=== PATIENT | female | born 1990 | race Caucasian/White ===

== ENCOUNTER → 2017-02-27 | Outpatient (REF) | payer BC ==
[2017-02-27 13:06] LABS: HEMATOCRIT 40.4 % (36.0-47.0); HEMOGLOBIN 13.5 g/dl (12.0-16.0); MEAN CORPUSCULAR HEMOGLOBIN 30.2 pg (27.0-33.0); MEAN CORPUSCULAR HGB CONC 33.4 g/dl (32.0-36.5); MEAN CORPUSCULAR VOLUME 90.4 fl (80.0-96.0); PLATELET COUNT, AUTOMATED 285 10^3/uL (150-450); RED BLOOD COUNT 4.47 10^6/uL (4.00-5.40); RED CELL DISTRIBUTION WIDTH 11.7 % (11.5-14.5); WHITE BLOOD COUNT 6.5 10^3/uL (4.0-10.0)
[2017-02-27 13:50] LABS: ALBUMIN 4.1 GM/DL (3.2-5.2); ALBUMIN/GLOBULIN RATIO 1.17 (1.00-1.93); ALKALINE PHOSPHATASE 94 U/L (45-117); ALT/SGPT 23 U/L (12-78); ANION GAP 6 MEQ/L (8-16); AST/SGOT 17 U/L (7-37); BILIRUBIN,TOTAL 0.3 MG/DL (0.2-1.0); BLOOD UREA NITROGEN 14 MG/DL (7-18); CALCIUM LEVEL 9.2 MG/DL (8.5-10.1); CARBON DIOXIDE LEVEL 29 MEQ/L (21-32); CHLORIDE LEVEL 106 MEQ/L (98-107); CHOLESTEROL LEVEL 222 MG/DL (<200); CHOLESTEROL RISK RATIO 3.964 (<5); CREATININE FOR GFR 0.73 MG/DL (0.55-1.02); FREE T4 0.93 NG/DL (0.76-1.46); GLOMERULAR FILTRATION RATE > 60.0 (>60); GLUCOSE, FASTING 87 MG/DL (70-105); HDL CHOLESTEROL 56 MG/DL (>40); NON-HDL-C 166 MG/DL; POTASSIUM SERUM 4.8 MEQ/L (3.5-5.1); SODIUM LEVEL 141 MEQ/L (136-145); TOTAL PROTEIN 7.6 GM/DL (6.4-8.2); TRIGLYCERIDES LEVEL 155 MG/DL (<150)
== END ==
LOC: M LAB REF 12:52
DX: Z01.419 Encounter for gynecological examination (general) (routine) without abnormal findings (principal)
CPT/HCPCS: 84443

== ENCOUNTER → 2017-04-27 | Outpatient (REF) | payer BC ==
[2017-04-27 12:19] LABS: HCG, SERUM QUANTITATIVE 48 MIU/ML
== END ==
LOC: M LAB REF 11:21
DX: O36.80X0 Pregnancy with inconclusive fetal viability, not applicable or unspecified (principal); Z3A.00 Weeks of gestation of pregnancy not specified
CPT/HCPCS: 84702

== ENCOUNTER → 2017-05-02 | Outpatient (REF) | payer BC ==
[2017-05-02 13:38] LABS: HEMATOCRIT 39.7 % (36.0-47.0); HEMOGLOBIN 13.3 g/dl (12.0-16.0); MEAN CORPUSCULAR HEMOGLOBIN 30.2 pg (27.0-33.0); MEAN CORPUSCULAR HGB CONC 33.5 g/dl (32.0-36.5); PLATELET COUNT, AUTOMATED 284 10^3/uL (150-450); RED BLOOD COUNT 4.41 10^6/uL (4.00-5.40); RED CELL DISTRIBUTION WIDTH 11.7 % (11.5-14.5); WHITE BLOOD COUNT 7.6 10^3/uL (4.0-10.0)
[2017-05-02 14:06] LABS: HCG, SERUM QUANTITATIVE 439 MIU/ML
[2017-05-02 14:20] LABS: RUBELLA IgG QUALITATIVE EQUIVOCAL (IMMUNE)
[2017-05-02 14:21] LABS: HBsAg Prenatal NEGATIVE (NEGATIVE)
[2017-05-02 14:49] LABS: HIV 1&2 SCREEN CENTAUR NEGATIVE (NEGATIVE)
[2017-05-02 14:49] LABS: HEPATITIS C VIRUS ABY INDEX 0.2 INDEX (<0.8)
[2017-05-02 15:17] LABS: CHLAMYDIA DNA AMPLIFICATION NEGATIVE (NEGATIVE); GC DNA AMPLIFICATION NEGATIVE (NEGATIVE)
== END ==
LOC: M LAB REF 12:47
DX: O36.80X0 Pregnancy with inconclusive fetal viability, not applicable or unspecified (principal); Z3A.00 Weeks of gestation of pregnancy not specified
CPT/HCPCS: 86762

== ENCOUNTER → 2017-05-08 | Outpatient (REF) | payer BC ==
[2017-05-08 18:02] LABS: HCG, SERUM QUANTITATIVE 5679 MIU/ML
== END ==
LOC: M LAB REF 16:55
DX: O36.80X0 Pregnancy with inconclusive fetal viability, not applicable or unspecified (principal)
CPT/HCPCS: 84702

== ENCOUNTER → 2017-07-26 | Outpatient (REF) | payer BC | LOC: M LAB REF 12:49 | DX: Z34.82 Encounter for supervision of other normal pregnancy, second trimester (principal) | CPT/HCPCS: 87086 ==

== ENCOUNTER → 2017-10-02 | Outpatient (CLI) | payer BC ==
[2017-10-02 18:35] LABS: HEMATOCRIT 34.6 % (36.0-47.0); HEMOGLOBIN 11.4 g/dl (12.0-15.5); MEAN CORPUSCULAR HEMOGLOBIN 30.5 pg (27.0-33.0); MEAN CORPUSCULAR HGB CONC 32.9 g/dl (32.0-36.5); MEAN CORPUSCULAR VOLUME 92.5 fl (80.0-96.0); PLATELET COUNT, AUTOMATED 262 10^3/uL (150-450); RED BLOOD COUNT 3.74 10^6/uL (4.00-5.40); RED CELL DISTRIBUTION WIDTH 13.2 % (11.5-14.5); WHITE BLOOD COUNT 10.4 10^3/uL (4.0-10.0)
[2017-10-02 19:03] LABS: GLUCOSE CHALLENGE TEST 1 HOUR 112 MG/DL (LESS THAN 140)
[2017-10-03 08:58] LABS: AB SCREEN (INDIRECT COOMBS)VIS 1 1
== END ==
LOC: M WUC 10:20
PROVIDERS: Orthopaedic Surgery
DX: Z34.82 Encounter for supervision of other normal pregnancy, second trimester (principal); Z34.02 Encounter for supervision of normal first pregnancy, second trimester; Z67.41 Type O blood, Rh negative
CPT/HCPCS: 82950

== ENCOUNTER → 2017-12-05 | Outpatient (REF) | payer BC | LOC: M LAB REF 13:08 | DX: Z34.03 Encounter for supervision of normal first pregnancy, third trimester (principal); Z3A.00 Weeks of gestation of pregnancy not specified ==

== ENCOUNTER 2017-12-23 14:54 | Inpatient (IN) | payer BC ==
[2017-12-23 19:02] LABS: HEMATOCRIT 38.3 % (36.0-47.0); MEAN CORPUSCULAR HEMOGLOBIN 29.4 pg (27.0-33.0); MEAN CORPUSCULAR HGB CONC 33.9 g/dl (32.0-36.5); MEAN CORPUSCULAR VOLUME 86.7 fl (80.0-96.0); PLATELET COUNT, AUTOMATED 313 10^3/uL (150-450); RED BLOOD COUNT 4.42 10^6/uL (4.00-5.40); RED CELL DISTRIBUTION WIDTH 12.3 % (11.5-14.5); WHITE BLOOD COUNT 17.3 10^3/uL (4.0-10.0)
[2017-12-23] MEDS ORDERED: FENTANYL 2MCG/ML ROPIVACAINE 0.2% IN 0.9% NACL 200ML IVBAG As Ordered (19:16)
[2017-12-23] MEDS ORDERED: FENTANYL/ROPIVACAINE/NACL BAG 200 ML EPIDURAL (20:00)
[2017-12-23] MEDS ORDERED: ePHEDrine SULFATE 25 MG/5 ML(5MG/ML) SYRINGE IV (20:00)
[2017-12-23] MEDS ORDERED: ONDANSETRON 4MG/2ML VIAL (J2405) IV (20:00)
[2017-12-23] MEDS ORDERED: EPIDURAL COMMENT XX (20:00)
[2017-12-23] MEDS ORDERED: REFRIGERATOR IV KEYS XX (20:00)
[2017-12-23] MEDS ORDERED: NALOXONE INJ 0.4 MG/1 ML VIAL (J2310) IV (20:00)
[2017-12-23] MEDS ORDERED: diphenhydrAMINE INJ 50MG/ML VIAL (J1200) IV (20:00)
[2017-12-23] MEDS ORDERED: LACTATED RINGER'S 1000 ML IV (20:00)
[2017-12-23] MEDS ORDERED: EPIDURAL/PCA KEYS XX (20:00)
[2017-12-24] MEDS ORDERED: OXYTOCIN 30 UNITS IN 0.9% NaCl 500ML IV BAG (J2590) As Ordered (00:10)
[2017-12-24] MEDS ORDERED: OXYTOCIN INJ 10 UNITS/ML VIAL (J2590) As Ordered ×2 (02:27)
[2017-12-24] MEDS ORDERED: MORPHINE PRES-FREE INJ 10 MG/10 ML VIAL (J2274) As Ordered (02:32)
[2017-12-24] MEDS: BICITRA 30ML SOLN UDC PO (02:34)
[2017-12-24] MEDS ORDERED: NALBUPHINE HCL 10 MG/ML AMP (J2300) IV (02:51)
[2017-12-24] MEDS ORDERED: NALOXONE INJ 0.4 MG/1 ML VIAL (J2310) IV ×2 (02:51)
[2017-12-24] MEDS ORDERED: METOCLOPRAMIDE INJ 10MG/2ML VIAL (J2765) IV (02:51)
[2017-12-24] MEDS ORDERED: ONDANSETRON 4MG/2ML VIAL (J2405) IV ×3 (02:51→04:30)
[2017-12-24] MEDS ORDERED: LIDOCAINE 2% INJ 100 MG/5 ML SDV (FOR ANES.) As Ordered (03:13)
[2017-12-24] MEDS ORDERED: PROPOFOL 200 MG/20 ML VIAL As Ordered (03:13)
[2017-12-24] MEDS ORDERED: SUCCINYLCHOLINE 100 MG/5 ML SYRINGE (J0330) As Ordered (03:13)
[2017-12-24] MEDS ORDERED: fentaNYL 100 MCG/2 ML INJECTION (J3010) As Ordered ×2 (03:14→03:30)
[2017-12-24] MEDS: BUPIVACAINE HCL 0.5% 10 ML VIAL SC (03:30)
[2017-12-24] MEDS ORDERED: ONDANSETRON 4MG/2ML VIAL (J2405) As Ordered (03:32)
[2017-12-24 03:41] LABS: CORD GAS O2 SAT A < 15.0 %
[2017-12-24 03:44] LABS: CORD GAS ABE A -8.4; CORD GAS HCO3 A 20.9 MEQ/L; CORD GAS HCO3 V 20.8 MEQ/L; CORD GAS O2 SAT V 15.9 %; CORD GAS PCO2 A 57.8 mmHg; CORD GAS PCO2 V 54.4 mmHg; CORD GAS PH A 7.177 UNITS; CORD GAS PO2 V 11.8 mmHg; CORD GAS SBC V 16.2 MEQ/L; CORD GAS TCO2 A 22.7 MEQ/L; CORD GAS TCO2 V 22.5 MEQ/L
[2017-12-24] MEDS ORDERED: BUPIVACAINE HCL 0.25% 30 ML VIAL As Ordered (03:56)
[2017-12-24] MEDS ORDERED: BUPIVACAINE/EPIN 0.5% 30 ML VIAL As Ordered (03:56)
[2017-12-24] MEDS: OXYTOCIN DRIP 30 UNITS in APPROPRIATE DILUENT 1 EA IV (03:59)
[2017-12-24] MEDS: LR 1,000 ML IV (04:11)
[2017-12-24] MEDS: KETOROLAC 30 MG/ML VIAL (J1885) IV ×5 (04:30→22:59)
[2017-12-24] MEDS ORDERED: PERCOCET 5MG/325MG TAB PO (04:30)
[2017-12-24] MEDS ORDERED: fentaNYL 100 MCG/2 ML INJECTION (J3010) IV (04:30)
[2017-12-24] MEDS ORDERED: KETOROLAC 30 MG/ML VIAL (J1885) As Ordered (04:31)
[2017-12-24] MEDS: LIDOCAINE 1% MDV INJ 50 ML VIAL SC (05:30)
[2017-12-24] MEDS: DILUENT IV (06:08)
[2017-12-24] MEDS: OXYTOCIN DRIP IV (06:08)
[2017-12-24] MEDS: PRENATAL VITAMINS CHEWABLE TABLET PO (07:40)
[2017-12-24] MEDS: PERCOCET 5MG/325MG TAB PO ×4 (07:41→21:04)
[2017-12-24 17:10] LABS: FETAL SCREEN PROF. 1 1
[2017-12-24] MEDS: RHOGAM 300 MCG (1500 IU) INJ (J2790) IM (17:26)
[2017-12-25] MEDS: PERCOCET 5MG/325MG TAB PO ×5 (01:12→20:50)
[2017-12-25] MEDS: IBUPROFEN 800 MG TAB PO ×3 (06:50→23:13)
[2017-12-25 07:10] LABS: HEMATOCRIT 27.2 % (36.0-47.0); MEAN CORPUSCULAR HEMOGLOBIN 29.7 pg (27.0-33.0); MEAN CORPUSCULAR HGB CONC 32.7 g/dl (32.0-36.5); MEAN CORPUSCULAR VOLUME 90.7 fl (80.0-96.0); PLATELET COUNT, AUTOMATED 195 10^3/uL (150-450); RED CELL DISTRIBUTION WIDTH 13.1 % (11.5-14.5); WHITE BLOOD COUNT 18.1 10^3/uL (4.0-10.0)
[2017-12-25 07:17] LABS: HEMOGLOBIN 8.9 g/dl (12.0-15.5)
[2017-12-25] MEDS: PRENATAL VITAMINS CHEWABLE TABLET PO (09:50)
[2017-12-26] MEDS: PERCOCET 5MG/325MG TAB PO ×2 (01:29→05:43)
[2017-12-26] MEDS: IBUPROFEN 800 MG TAB PO (06:32)
[2017-12-26] MEDS: PRENATAL VITAMINS CHEWABLE TABLET PO (08:02)
[2017-12-26] MEDS: MEASLES,MUMPS,RUBELLA VACCINE INJ (MMR-II) (90707) SC (10:06)
== END 2017-12-26 10:30 | disposition home or self-care (01) | DRG 540 ==
LOC: M LDO 14:54 → M OBS 12-24 05:25 → M LDI 17:27
PROVIDERS: Advanced Practice Midwife
PROC: 10D00Z1 Extraction of Products of Conception, Low, Open Approach (ICD-10-PCS; principal; 2017-12-24 02:48)
DX: O62.0 Primary inadequate contractions (principal); Z3A.38 38 weeks gestation of pregnancy; Z37.0 Single live birth

== ENCOUNTER → 2018-02-01 | Outpatient (CLI) | payer BC ==
[~2018-02-01] MED LIST: IBUP80TA PO; OXYC1TAB23 PO; PRENTAB9 PO
[2018-02-01 14:18] LABS: HEMOGLOBIN 11.3 g/dl (12.0-15.5); MEAN CORPUSCULAR HEMOGLOBIN 28.6 pg (27.0-33.0); MEAN CORPUSCULAR HGB CONC 32.3 g/dl (32.0-36.5); MEAN CORPUSCULAR VOLUME 88.6 fl (80.0-96.0); PLATELET COUNT, AUTOMATED 298 10^3/uL (150-450); RED BLOOD COUNT 3.95 10^6/uL (4.00-5.40); WHITE BLOOD COUNT 9.2 10^3/uL (4.0-10.0)
== END ==
LOC: M WUC 12:58
PROVIDERS: ATTEND Advanced Practice Midwife
DX: R42 Dizziness and giddiness (principal)

== ENCOUNTER → 2018-04-02 | Outpatient (CLI) | payer BC ==
--- NOTE | 2018-04-02 12:39 | REP ---
LEFT BREAST ULTRASOUND: 04/02/2018. Clinical history: 27-year-old female 3 months who did not breastfeed. She noted a lump 1 month ago at about the noon position left breast. Findings: Sonographic evaluation at the noon position in the area of palpable finding shows a 10 x 10 x 9 mm hypoechoic mass with internal echoes and through transmission demonstrated. There is some color flow seen within. It has lobulated margins. Adjacent to it is a 4 x 4 x 3 mm simple cyst also noon position slightly deeper and superior to this solid nodule. Impression: 1. BI-RADS ACR category 4 suspicious, solid nodule left breast noon position. Finding with through transmission and some internal echoes suggest fibroadenoma. Differential consideration lactating adenoma. I would recommend ultrasound-guided core needle biopsy for diagnosis of this solid nodule as ultrasound is not a tissue specific diagnostic modality. Electronically Signed by Rajesh Ballesteros MD 04/02/2018 05:50 P
== END ==
LOC: M WHC 08:35
PROVIDERS: ATTEND Nurse Practitioner Family
DX: N63.20 Unspecified lump in the left breast, unspecified quadrant (principal)

== ENCOUNTER → 2018-04-29 | Outpatient (CLI) | payer BC ==
[~2018-04-29] MED LIST changes: +LIDOCAINE 1% MDV 20ML VIAL As Ordered ONE
--- NOTE | 2018-04-30 21:13 | REP ---
ULTRASOUND GUIDED LEFT BREAST BIOPSY The procedure was performed under the direct supervision of Dr. De La Torre The patient has a history of 810 x 10 x 9 mm hypoechoic mass in the 12 o'clock position of the left breast seen on a previous ultrasound dated 04/02/2018. The risks and benefits of the procedure were explained to the patient and informed consent was obtained. The left breast nodule was localized using ultrasound guidance. The skin was prepped and draped in a sterile fashion. 1% Xylocaine was used as a local anesthetic. Using ultrasound guidance a 13-gauge suction assisted Mammotome needle was inserted and six core biopsy samples were obtained. A marker clip was placed at the biopsy site. The patient tolerated the procedure well and there were no immediate complications. After the appropriate amount of monitored convalescence the patient was discharged from the department. Reviewed by KELLY Robles 04/29/2018 03:25 P Electronically Signed by Andrew De La Torre MD 04/30/2018 09:05 P
== END ==
LOC: M RADPRO 11:22
PROVIDERS: ATTEND Surgery
DX: N60.22 Fibroadenosis of left breast (principal)

== ENCOUNTER → 2021-03-30 | Outpatient (REF) | payer BC, OTHER ==
[~2021-03-30] MED LIST changes: -LIDOCAINE 1% MDV 20ML VIAL As Ordered ONE
== END ==
LOC: M SFHCWAGY 17:06
PROVIDERS: ATTEND Advanced Practice Midwife
DX: Z12.4 Encounter for screening for malignant neoplasm of cervix (principal)
CPT/HCPCS: 87624; G0123

== ENCOUNTER → 2021-04-21 | Outpatient (CLI) | payer OTHER ==
[2021-04-21 13:39] LABS: BASO % 0.3 % (0.0-1.0); EOS # 0.1 10^3/uL (0.0-0.5); EOS % 0.5 % (0.0-3.0); HEMATOCRIT 40.7 % (36.0-47.0); HEMOGLOBIN 13.8 g/dl (12.0-15.5); LYMPH % 25.9 % (24.0-44.0); MEAN CORPUSCULAR HEMOGLOBIN 30.4 pg (27.0-33.0); MEAN CORPUSCULAR HGB CONC 33.9 g/dl (32.0-36.5); MEAN CORPUSCULAR VOLUME 89.6 fl (80.0-96.0); MONO # 0.9 10^3/uL (0.0-0.8); MONO % 7.8 % (2.0-8.0); NEUTROPHILS # 7.4 10^3/uL (1.5-8.5); NEUTROPHILS % 64.7 % (36.0-66.0); PLATELET COUNT, AUTOMATED 360 10^3/uL (150-450); RED BLOOD COUNT 4.54 10^6/uL (4.00-5.40); WHITE BLOOD COUNT 11.5 10^3/uL (4.0-10.0)
[2021-04-21 14:51] LABS: HEPATITIS C VIRUS ABY INDEX 0.1 INDEX (<0.8); HIV 1&2 SCREEN CENTAUR NEGATIVE (NEGATIVE)
[2021-04-21 15:11] LABS: GC DNA AMPLIFICATION NEGATIVE (NEGATIVE)
== END ==
LOC: M PLALAB 12:05
PROVIDERS: ATTEND Advanced Practice Midwife
DX: O34.211 Maternal care for low transverse scar from previous cesarean delivery (principal)

== ENCOUNTER → 2021-06-13 | Outpatient (CLI) | payer OTHER | LOC: M WHC 13:24 | PROVIDERS: ATTEND Advanced Practice Midwife | DX: N60.22 Fibroadenosis of left breast (principal) ==

== ENCOUNTER → 2021-06-28 | Outpatient (CLI) | payer OTHER | LOC: M WHC 09:32 | PROVIDERS: ATTEND Advanced Practice Midwife | DX: Z36.3 Encounter for antenatal screening for malformations (principal); O34.211 Maternal care for low transverse scar from previous cesarean delivery; Z3A.18 18 weeks gestation of pregnancy ==

== ENCOUNTER → 2021-07-25 | Outpatient (CLI) | payer OTHER | LOC: M WHC 11:22 | PROVIDERS: ATTEND Advanced Practice Midwife | DX: O34.211 Maternal care for low transverse scar from previous cesarean delivery (principal); Z3A.21 21 weeks gestation of pregnancy ==

== ENCOUNTER → 2021-08-23 | Outpatient (CLI) | payer OTHER ==
[2021-08-23 16:40] LABS: HEMATOCRIT 34.7 % (36.0-47.0); HEMOGLOBIN 11.4 g/dl (12.0-15.5); MEAN CORPUSCULAR HEMOGLOBIN 30.7 pg (27.0-33.0); MEAN CORPUSCULAR HGB CONC 32.9 g/dl (32.0-36.5); MEAN CORPUSCULAR VOLUME 93.5 fl (80.0-96.0); PLATELET COUNT, AUTOMATED 320 10^3/uL (150-450); RED BLOOD COUNT 3.71 10^6/uL (4.00-5.40); WHITE BLOOD COUNT 10.7 10^3/uL (4.0-10.0)
== END ==
LOC: M WUC 11:11
PROVIDERS: ATTEND Advanced Practice Midwife
DX: O34.211 Maternal care for low transverse scar from previous cesarean delivery (principal)

== ENCOUNTER → 2021-10-27 | Outpatient (REF) | payer OTHER | LOC: M PLALAB 09:12 | PROVIDERS: ATTEND Advanced Practice Midwife | DX: O34.211 Maternal care for low transverse scar from previous cesarean delivery (principal) ==

== ENCOUNTER 2021-11-07 16:31 | Inpatient (IN) | payer OTHER ==
[~2021-11-07] VITALS: Ht 154.9 cm; Wt 78.7 kg
[~2021-11-07 16:31] MED LIST changes: +PROBCAP14 PO; +ZOLO25TA PO
[2021-11-07] MEDS ORDERED: HOME MED LIST COMPLETE! XX SCH (16:50)
[2021-11-07 16:55] VITALS: BP 128/82
[2021-11-07] MEDS ORDERED: LACTATED RINGER'S 1000 ML IV STA (19:08)
[2021-11-07] MEDS ORDERED: ceFAZolin SOD 2 GM in IV 1 EA IV ONE (19:10)
[2021-11-07] MEDS ORDERED: BICITRA 30ML SOLN UDC PO ONE (19:10)
[2021-11-07] MEDS ORDERED: LR 1,000 ML IV SCH (19:10)
[2021-11-07 19:57] LABS: HEMATOCRIT 36.9 % (36.0-47.0); HEMOGLOBIN 12.4 g/dl (12.0-15.5); MEAN CORPUSCULAR HEMOGLOBIN 28.6 pg (27.0-33.0); MEAN CORPUSCULAR HGB CONC 33.6 g/dl (32.0-36.5); MEAN CORPUSCULAR VOLUME 85.2 fl (80.0-96.0); PLATELET COUNT, AUTOMATED 324 10^3/uL (150-450); RED BLOOD COUNT 4.33 10^6/uL (4.00-5.40); WHITE BLOOD COUNT 11.5 10^3/uL (4.0-10.0)
[2021-11-07 20:47] VITALS: BP 133/82
[2021-11-07] MEDS ORDERED: OXYTOCIN INJ 10 UNITS/ML VIAL (J2590) As Ordered ONE (21:12)
[2021-11-07] MEDS ORDERED: MORPHINE PRES-FREE INJ 10 MG/10 ML VIAL As Ordered ONE (21:12)
[2021-11-07] MEDS ORDERED: ePHEDrine SULFATE 25 MG/5 ML(5MG/ML) SYRINGE As Ordered ONE (21:24)
[2021-11-07] MEDS ORDERED: KETOROLAC 60MG 2ML VIAL As Ordered ONE (21:30)
[2021-11-07] MEDS ORDERED: ONDANSETRON 4MG 2ML VIAL As Ordered ONE (21:33)
[2021-11-07 22:00] VITALS: BP 131/96
[2021-11-07 22:10] VITALS: BP 119/61
[2021-11-07] MEDS ORDERED: SIMETHICONE 80MG CHEW TAB PO PRN (22:10)
[2021-11-07] MEDS ORDERED: RHOGAM 300 MCG (1500 IU) INJ (J2790) IM SCH (22:10)
[2021-11-07] MEDS ORDERED: OXYTOCIN DRIP 30 UNITS in IV 1 EA IV SCH (22:10)
[2021-11-07] MEDS ORDERED: PERCOCET 5MG/325MG TAB PO PRN (22:10)
[2021-11-07 22:16] VITALS: BP 100/51
[2021-11-07] MEDS ORDERED: OXYTOCIN 30 UNITS IN 0.9% NaCl 500ML IV BAG (J2590) As Ordered ONE (22:29)
[2021-11-07] MEDS: LR 1,000 ML IV SCH (22:32)
[2021-11-07 23:31] VITALS: BP 116/60
[2021-11-08] VITALS (9 sets, daily range): BP systolic 90–120; BP diastolic 53–66
[2021-11-08] MEDS: KETOROLAC 30 MG/ML 1ML VIAL IV SCH ×3 (04:07→16:07)
[2021-11-08] MEDS: LR 1,000 ML IV SCH ×2 (06:40→16:08)
[2021-11-08 07:26] LABS: HEMATOCRIT 30.5 % (36.0-47.0); MEAN CORPUSCULAR HEMOGLOBIN 28.3 pg (27.0-33.0); MEAN CORPUSCULAR HGB CONC 32.5 g/dl (32.0-36.5); MEAN CORPUSCULAR VOLUME 87.1 fl (80.0-96.0); PLATELET COUNT, AUTOMATED 234 10^3/uL (150-450); WHITE BLOOD COUNT 12.2 10^3/uL (4.0-10.0)
[2021-11-08 07:38] LABS: HEMOGLOBIN 9.9 g/dl (12.0-15.5)
[2021-11-08] MEDS: PRENATAL VITAMINS CHEWABLE TABLET PO SCH (08:41)
[2021-11-08] MEDS: PERCOCET 5MG/325MG TAB PO PRN (18:20)
[2021-11-08] MEDS ORDERED: SERTRALINE HCL 25 MG TABLET PO SCH (21:00)
[2021-11-08] MEDS: IBUPROFEN 800 MG TAB PO SCH (23:41)
[2021-11-09 02:12] VITALS: BP 122/65
[2021-11-09] MEDS: PERCOCET 5MG/325MG TAB PO PRN (02:19)
[2021-11-09 06:15] VITALS: BP 113/59
[2021-11-09] MEDS: PRENATAL VITAMINS CHEWABLE TABLET PO SCH (08:22)
[2021-11-09] MEDS: IBUPROFEN 800 MG TAB PO SCH (08:23)
[2021-11-09] MEDS ORDERED: MEASLES,MUMPS,RUBELLA VACCINE INJ (MMR-II) (90707) SC.IMMUN ONE (09:00)
[2021-11-09 10:00] VITALS: BP 110/56
[2021-11-09] MEDS ORDERED: IBUP80TA PO (12:04)
[2021-11-09] MEDS ORDERED: PERCOCET PO (12:04)
== END 2021-11-09 13:17 | disposition home or self-care (01) | DRG 540 ==
LOC: M LDO 16:31 → M LDI 19:07 → M OBS 23:11
PROVIDERS: ADMIT Advanced Practice Midwife; ATTEND Specialist
PROC: 10D00Z1 Extraction of Products of Conception, Low, Open Approach (ICD-10-PCS; principal; 2021-11-07 21:00)
DX: O34.211 Maternal care for low transverse scar from previous cesarean delivery (principal); Z3A.37 37 weeks gestation of pregnancy; O75.82 Onset (spontaneous) of labor after 37 completed weeks of gestation but before 39 completed weeks gestation, with delivery by (planned) cesarean section; Z37.0 Single live birth

== ENCOUNTER → 2022-04-06 | Outpatient (CLI) | payer OTHER ==
[~2022-04-06] MED LIST changes: +PERCOCET PO
[2022-04-06 15:34] LABS: BASO # 0.1 10^3/uL (0.0-0.2); BASO % 0.8 % (0.0-1.0); EOS # 0.1 10^3/uL (0.0-0.5); EOS % 1.3 % (0.0-3.0); HEMATOCRIT 41.4 % (36.0-47.0); HEMOGLOBIN 13.6 g/dl (12.0-15.5); LYMPH # 2.6 10^3/uL (1.5-5.0); LYMPH % 25.6 % (24.0-44.0); MEAN CORPUSCULAR HEMOGLOBIN 29.3 pg (27.0-33.0); MEAN CORPUSCULAR HGB CONC 32.9 g/dl (32.0-36.5); MEAN CORPUSCULAR VOLUME 89.2 fl (80.0-96.0); MONO # 0.6 10^3/uL (0.0-0.8); MONO % 6.1 % (2.0-8.0); NEUTROPHILS # 6.6 10^3/uL (1.5-8.5); NEUTROPHILS % 65.7 % (36.0-66.0); PLATELET COUNT, AUTOMATED 367 10^3/uL (150-450); RED BLOOD COUNT 4.64 10^6/uL (4.00-5.40); WHITE BLOOD COUNT 10.1 10^3/uL (4.0-10.0)
[2022-04-06 16:00] LABS: THYROID STIMULATING HORMONE 1.786 uIU/ML (0.55-4.78)
[2022-04-06 16:02] LABS: ALKALINE PHOSPHATASE 105 U/L (46-116); ALT/SGPT 32 U/L (7.0-40); AST/SGOT 27 U/L (<34); BILIRUBIN,TOTAL 0.2 MG/DL (0.3-1.2); BLOOD UREA NITROGEN 13 MG/DL (9-23); CALCIUM LEVEL 9.7 MG/DL (8.5-10.1); CARBON DIOXIDE LEVEL 30 MMOL/L (20-31); CHLORIDE LEVEL 104 MMOL/L (98-107); CHOLESTEROL LEVEL 239 MG/DL (<200); CHOLESTEROL RISK RATIO 5.04 (<5); CREATININE FOR GFR 0.83 MG/DL (0.55-1.30); GLOMERULAR FILTRATION RATE > 60.0 (>60); GLUCOSE, FASTING 90 MG/DL (60-100); HDL CHOLESTEROL 47.4 MG/DL (>40); NON-HDL-C 192 MG/DL; POTASSIUM SERUM 4.3 MMOL/L (3.5-5.1); SODIUM LEVEL 140 MMOL/L (136-145); TOTAL PROTEIN 7.6 G/DL (5.7-8.2); TRIGLYCERIDES LEVEL 570 MG/DL (<150)
== END ==
LOC: M PLAIMG 13:40
PROVIDERS: ATTEND Physician Assistant
DX: Z01.818 Encounter for other preprocedural examination (principal)

== ENCOUNTER → 2022-04-14 | Outpatient (CLI) | payer OTHER | LOC: M LABSMTC 07:40 | PROVIDERS: ATTEND Anesthesiology | DX: Z01.812 Encounter for preprocedural laboratory examination (principal); Z20.822 Contact with and (suspected) exposure to COVID-19 ==

== ENCOUNTER 2022-04-18 10:46 | Day surgery (SDC) | payer OTHER ==
[~2022-04-18] VITALS: Ht 154.9 cm; Wt 78.0 kg
[~2022-04-18 10:46] MED LIST changes: +BUPIVACAINE HCL 0.25% 30ML VIAL As Ordered ONE; +LIDOCAINE 1% SDV 30ML VIAL As Ordered ONE
[2022-04-18] MEDS ORDERED: SCOPOLAMINE 1MG TRANSDERMAL PATCH TOP ONE (11:25)
[2022-04-18] MEDS ORDERED: MIDAZOLAM INJ 2MG/2ML VIAL As Ordered ONE (11:26)
[2022-04-18] MEDS ORDERED: propofoL 200 MG/20 ML VIAL As Ordered ONE ×3 (11:26→14:52)
[2022-04-18] MEDS ORDERED: ONDANSETRON 4MG 2ML VIAL As Ordered ONE (11:26)
[2022-04-18] MEDS ORDERED: LIDOCAINE 2% 100MG/5ML SDV (FOR ANES.) As Ordered ONE (11:26)
[2022-04-18] MEDS ORDERED: fentaNYL 100 MCG/2 ML INJECTION As Ordered ONE (11:26)
[2022-04-18] MEDS ORDERED: ceFAZolin SOD 2 GM in IV 1 EA IV ONE (11:35)
[2022-04-18] MEDS ORDERED: HEPARIN SOD (PORCINE) 5000UNITS/ML 1ML VIAL/SYRINGE SQ ONE (11:35)
[2022-04-18] MEDS ORDERED: SUGAMMADEX SODIUM 500 MG/5 ML VIAL (BRIDION) As Ordered ONE (11:48)
[2022-04-18] MEDS ORDERED: ACETAMINOPHEN 1000MG 100ML IV BAG As Ordered ONE (14:52)
[2022-04-18] MEDS ORDERED: METOCLOPRAMIDE INJ 10MG/2ML VIAL IV PRN (15:35)
[2022-04-18] MEDS ORDERED: HYDROMORPHONE HCL 0.5 MG/ 0.5 ML SYRINGE IV PRN (15:35)
[2022-04-18] MEDS ORDERED: ONDANSETRON 4MG 2ML VIAL IV PRN (15:35)
[2022-04-18] MEDS ORDERED: fentaNYL 100 MCG/2 ML INJECTION IV PRN (15:35)
[2022-04-18] MEDS ORDERED: oxyCODONE 5MG TAB PO PRN (15:35)
[2022-04-18] MEDS ORDERED: LR 1,000 ML IV SCH (15:35)
[2022-04-18] MEDS ORDERED: TRAM50TA2 PO (15:48)
[2022-04-18 16:49] VITALS: BP 136/80
== END 2022-04-18 16:53 | disposition home or self-care (01) ==
LOC: M SDC 10:46
PROVIDERS: ATTEND Surgery
DX: D24.2 Benign neoplasm of left breast (principal); F41.9 Anxiety disorder, unspecified; Q79.60 Ehlers-Danlos syndrome, unspecified; Z79.899 Other long term (current) drug therapy; Z91.048 Other nonmedicinal substance allergy status
CPT/HCPCS: 19120; 36415; 81025; 86850; 86900; 86901; 88307; J0131; J0690; J1100; J1644; J2250; J2405; J3010; S0020

== ENCOUNTER → 2022-05-12 | Outpatient (REF) | payer OTHER ==
[~2022-05-12] MED LIST changes: -BUPIVACAINE HCL 0.25% 30ML VIAL As Ordered ONE; -LIDOCAINE 1% SDV 30ML VIAL As Ordered ONE; +TRAM50TA2 PO
== END ==
LOC: M PLALAB 10:18
PROVIDERS: ATTEND Advanced Practice Midwife
DX: Z12.4 Encounter for screening for malignant neoplasm of cervix (principal)
CPT/HCPCS: 87624; G0123

== ENCOUNTER → 2023-03-15 | Outpatient (CLI) | payer OTHER | LOC: M RAD 16:23 | PROVIDERS: ATTEND Physician Assistant | DX: M25.531 Pain in right wrist (principal); M25.532 Pain in left wrist; T14.8XXA Other injury of unspecified body region, initial encounter; M54.2 Cervicalgia; W18.30XA Fall on same level, unspecified, initial encounter; Y92.009 Unspecified place in unspecified non-institutional (private) residence as the place of occurrence of the external cause ==

== ENCOUNTER → 2023-04-16 | Outpatient (CLI) | payer OTHER | LOC: M SOG 07:58 | PROVIDERS: ATTEND Physician Assistant | DX: M25.531 Pain in right wrist (principal); Z53.8 Procedure and treatment not carried out for other reasons ==

== ENCOUNTER → 2023-04-24 | Outpatient (CLI) | payer OTHER | LOC: M SOG 07:55 | PROVIDERS: ATTEND Physician Assistant | DX: M25.531 Pain in right wrist (principal); Z53.9 Procedure and treatment not carried out, unspecified reason ==

== ENCOUNTER 2023-05-12 13:16 | Emergency (ER) | payer OTHER ==
[~2023-05-12] VITALS: Ht 154.9 cm; Wt 79.6 kg
[2023-05-12] MEDS: NAPROXEN 250 MG TAB PO ONE (13:43)
[2023-05-12 14:50] VITALS: BP 132/76; TEMP 98.6; O2SAT 96
== END 2023-05-12 14:51 | disposition home or self-care (01) ==
LOC: M ED 13:16
DX: S63.522A Sprain of radiocarpal joint of left wrist, initial encounter (principal); Y92.019 Unspecified place in single-family (private) house as the place of occurrence of the external cause; Y93.9 Activity, unspecified; Y99.9 Unspecified external cause status; Z91.048 Other nonmedicinal substance allergy status; Z79.899 Other long term (current) drug therapy

== ENCOUNTER → 2023-07-25 | Outpatient (CLI) | payer OTHER ==
[2023-07-25 15:31] LABS: BASO # 0.1 10^3/uL (0.0-0.2); EOS # 0.1 10^3/uL (0.0-0.5); HEMATOCRIT 38.5 % (36.0-47.0); HEMOGLOBIN 13.1 g/dl (12.0-15.5); LYMPH # 2.9 10^3/uL (1.5-5.0); LYMPH % 34.5 % (24.0-44.0); MEAN CORPUSCULAR VOLUME 91.2 fl (80.0-96.0); MONO # 0.7 10^3/uL (0.0-0.8); MONO % 8.1 % (2.0-8.0); NEUTROPHILS # 4.5 10^3/uL (1.5-8.5); PLATELET COUNT, AUTOMATED 356 10^3/uL (150-450); RED BLOOD COUNT 4.22 10^6/uL (4.00-5.40); WHITE BLOOD COUNT 8.3 10^3/uL (4.0-10.0)
[2023-07-25 15:56] LABS: ALBUMIN 3.9 G/DL (3.2-5.2); ALKALINE PHOSPHATASE 86 U/L (46-116); ALT/SGPT 22 U/L (7.0-40); AST/SGOT 11 U/L (<34); BILIRUBIN,TOTAL 0.2 MG/DL (0.3-1.2); BLOOD UREA NITROGEN 13 MG/DL (9-23); CALCIUM LEVEL 9.5 MG/DL (8.5-10.1); CARBON DIOXIDE LEVEL 28 MMOL/L (20-31); CHLORIDE LEVEL 106 MMOL/L (98-107); CHOLESTEROL LEVEL 223 MG/DL (<200); CHOLESTEROL RISK RATIO 4.65 (<5); CREATININE FOR GFR 0.76 MG/DL (0.55-1.30); GLOMERULAR FILTRATION RATE > 60.0 (>60); GLUCOSE, FASTING 84 MG/DL (60-100); HDL CHOLESTEROL 47.9 MG/DL (>40); LDL CHOLESTEROL 119.1 MG/DL (<100); NON-HDL-C 175.1 MG/DL; POTASSIUM SERUM 4.4 MMOL/L (3.5-5.1); SODIUM LEVEL 139 MMOL/L (136-145); TOTAL PROTEIN 7.2 G/DL (5.7-8.2); TRIGLYCERIDES LEVEL 280 MG/DL (<150)
[2023-07-25 15:59] LABS: THYROID STIMULATING HORMONE 1.294 uIU/ML (0.55-4.78)
[2023-07-25 16:00] LABS: FREE T4 1.04 NG/DL (0.89-1.76)
[2023-07-25 16:27] LABS: HEMOGLOBIN A1c 5.1 % (4.0-6.0)
== END ==
LOC: M PLALAB 11:37
PROVIDERS: ATTEND Physician Assistant
DX: F41.1 Generalized anxiety disorder (principal)

== ENCOUNTER → 2023-11-15 | Outpatient (REF) | payer OTHER ==
[2023-11-20 14:02] LABS: HPV APTIMA Not Detected (Not Detected)
== END ==
LOC: M PLALAB 15:51
PROVIDERS: ATTEND Advanced Practice Midwife
DX: Z12.4 Encounter for screening for malignant neoplasm of cervix (principal)
CPT/HCPCS: 87624; G0123

== ENCOUNTER → 2024-01-28 | Outpatient (CLI) | payer OTHER | LOC: M PLALAB 10:23 | PROVIDERS: ATTEND Advanced Practice Midwife | DX: O20.9 Hemorrhage in early pregnancy, unspecified (principal); Z3A.00 Weeks of gestation of pregnancy not specified ==

== ENCOUNTER → 2024-05-20 | Outpatient (CLI) | payer OTHER ==
[2024-05-20 19:03] LABS: HEMATOCRIT 40.6 % (36.0-47.0); HEMOGLOBIN 13.3 g/dl (12.0-15.5); MEAN CORPUSCULAR HEMOGLOBIN 30.1 pg (27.0-33.0); MEAN CORPUSCULAR HGB CONC 32.8 g/dl (32.0-36.5); MEAN CORPUSCULAR VOLUME 91.9 fl (80.0-96.0); PLATELET COUNT, AUTOMATED 353 10^3/uL (150-450); RED BLOOD COUNT 4.42 10^6/uL (4.00-5.40); WHITE BLOOD COUNT 11.4 10^3/uL (4.0-10.0)
[2024-05-20 19:43] LABS: VITAMIN B12 LEVEL 381 PG/ML (211-911)
[2024-05-20 19:45] LABS: IRON (FE) 70 UG/DL (50-170); PERCENT SATURATION 20.6 % (13.2-45.0); THYROID STIMULATING HORMONE 2.263 uIU/ML (0.55-4.78); TOTAL IRON BINDING CAPACITY 339 UG/DL (250-425)
[2024-05-20 19:47] LABS: FREE T4 0.99 NG/DL (0.89-1.76)
[2024-05-20 19:49] LABS: HEMOGLOBIN A1c 5.1 % (4.0-6.0)
[2024-05-20 19:54] LABS: ALKALINE PHOSPHATASE 79 U/L (35-104); ALT/SGPT 33 U/L (7.0-40); AST/SGOT 16 U/L (<34); BILIRUBIN,TOTAL 0.2 MG/DL (0.3-1.2); BLOOD UREA NITROGEN 10 MG/DL (9-23); CALCIUM LEVEL 9.8 MG/DL (8.5-10.1); CARBON DIOXIDE LEVEL 27 MMOL/L (20-31); CHLORIDE LEVEL 104 MMOL/L (98-107); CHOLESTEROL LEVEL 239 MG/DL (<200); CHOLESTEROL RISK RATIO 4.86 (<5); CREATININE FOR GFR 0.81 MG/DL (0.55-1.30); GLOMERULAR FILTRATION RATE > 60.0 (>60); GLUCOSE, FASTING 67 MG/DL (60-100); HDL CHOLESTEROL 49.1 MG/DL (>40); LDL CHOLESTEROL 136.3 MG/DL (<100); NON-HDL-C 189.9 MG/DL; POTASSIUM SERUM 4.4 MMOL/L (3.5-5.1); SODIUM LEVEL 140 MMOL/L (136-145); TOTAL PROTEIN 7.6 G/DL (5.7-8.2); TRIGLYCERIDES LEVEL 268 MG/DL (<150)
== END ==
LOC: M PLALAB 14:46
PROVIDERS: ATTEND Nurse Practitioner Family
DX: Z13.1 Encounter for screening for diabetes mellitus (principal); Z13.220 Encounter for screening for lipoid disorders; R00.2 Palpitations; Z13.29 Encounter for screening for other suspected endocrine disorder

== ENCOUNTER 2024-05-22 17:57 | Emergency (ER) | payer OTHER ==
[~2024-05-22] VITALS: Ht 154.9 cm; Wt 81.2 kg
[2024-05-22] MEDS ORDERED: QC F0.52 PO (18:12)
[2024-05-22] MEDS ORDERED: MAGN400C PO (18:12)
[2024-05-22] MEDS ORDERED: KP F1200 PO (18:12)
[2024-05-22 18:44] LABS: BASO # 0.1 10^3/uL (0.0-0.2); BASO % 0.6 % (0.0-1.0); EOS # 0.1 10^3/uL (0.0-0.5); HEMATOCRIT 39.6 % (36.0-47.0); HEMOGLOBIN 13.2 g/dl (12.0-15.5); LYMPH # 3.8 10^3/uL (1.5-5.0); LYMPH % 30.2 % (24.0-44.0); MEAN CORPUSCULAR HEMOGLOBIN 29.8 pg (27.0-33.0); MEAN CORPUSCULAR HGB CONC 33.3 g/dl (32.0-36.5); MEAN CORPUSCULAR VOLUME 89.4 fl (80.0-96.0); MONO # 0.9 10^3/uL (0.0-0.8); MONO % 7.4 % (2.0-8.0); NEUTROPHILS # 7.5 10^3/uL (1.5-8.5); NEUTROPHILS % 60.2 % (36.0-66.0); PLATELET COUNT, AUTOMATED 339 10^3/uL (150-450); RED BLOOD COUNT 4.43 10^6/uL (4.00-5.40); WHITE BLOOD COUNT 12.5 10^3/uL (4.0-10.0)
[2024-05-22 18:50] LABS: INR 0.92; PARTIAL THROMBOPLASTIN TIME 28.5 SECONDS (24.8-34.2); PROTHROMBIN TIME 12.7 SECONDS (12.5-14.5)
[2024-05-22 18:52] LABS: LIPASE 47 U/L (12-53)
[2024-05-22 18:54] LABS: ALKALINE PHOSPHATASE 75 U/L (35-104); ALT/SGPT 33 U/L (7.0-40); AST/SGOT 20 U/L (<34); BILIRUBIN,DIRECT < 0.1 MG/DL (<0.4); BILIRUBIN,TOTAL 0.2 MG/DL (0.3-1.2); BLOOD UREA NITROGEN 15 MG/DL (9-23); CARBON DIOXIDE LEVEL 28 MMOL/L (20-31); CHLORIDE LEVEL 103 MMOL/L (98-107); CK-MB VALUE MASS < 1.0 NG/ML (<3.6); CREATININE FOR GFR 0.79 MG/DL (0.55-1.30); GLOMERULAR FILTRATION RATE > 90.0 (>60); GLUCOSE, FASTING 84 MG/DL (60-100); POTASSIUM SERUM 4.1 MMOL/L (3.5-5.1); SODIUM LEVEL 140 MMOL/L (136-145); TOTAL PROTEIN 7.8 G/DL (5.7-8.2)
[2024-05-22 18:57] LABS: THYROID STIMULATING HORMONE 2.707 uIU/ML (0.55-4.78)
[2024-05-22 18:58] LABS: CPK CREATINE PHOSPHOKINASE 65 U/L (34-145); MB/CK RELATIVE INDEX 1.53 (< OR =4)
[2024-05-22 19:03] LABS: D-DIMER QUANT < 0.27 ug/mL (<0.5)
[2024-05-22 19:06] LABS: HCG, SERUM QUALITATIVE NEGATIVE (NEGATIVE)
[2024-05-22 19:52] LABS: CK-MB VALUE MASS < 1.0 NG/ML (<3.6)
[2024-05-22 19:59] LABS: CPK CREATINE PHOSPHOKINASE 68 U/L (34-145); MB/CK RELATIVE INDEX 1.47 (< OR =4)
[2024-05-22 21:09] VITALS: BP 117/73; TEMP 97.8; O2SAT 99
== END 2024-05-22 21:13 | disposition home or self-care (01) ==
LOC: M ED 17:57
DX: R00.2 Palpitations (principal); R07.9 Chest pain, unspecified; F41.9 Anxiety disorder, unspecified; Z91.048 Other nonmedicinal substance allergy status; Z79.899 Other long term (current) drug therapy

== ENCOUNTER → 2024-06-20 | Outpatient (CLI) | payer OTHER ==
[~2024-06-20] MED LIST changes: +E-Z-GAS II EFFERVESCENT PACKET (SODIUM BICARB./CITRIC ACID/SIMETHICONE) As Ordered ONE; +E-Z-HD 98% w/w 340GM SUSP BTL As Ordered ONE; +E-Z-PAQUE 96% w/w SUSP 176GM BTL As Ordered ONE; +KP F1200 PO; +MAGN400C PO; +QC F0.52 PO
== END ==
LOC: M RAD 10:01
PROVIDERS: ATTEND Nurse Practitioner Family
DX: R13.10 Dysphagia, unspecified (principal)

== ENCOUNTER → 2024-09-25 | Outpatient (REF) | payer OTHER ==
[~2024-09-25] MED LIST changes: -E-Z-GAS II EFFERVESCENT PACKET (SODIUM BICARB./CITRIC ACID/SIMETHICONE) As Ordered ONE; -E-Z-HD 98% w/w 340GM SUSP BTL As Ordered ONE; -E-Z-PAQUE 96% w/w SUSP 176GM BTL As Ordered ONE
== END ==
LOC: M PLALAB 14:53
PROVIDERS: ATTEND Advanced Practice Midwife
DX: O09.522 Supervision of elderly multigravida, second trimester (principal); Z3A.00 Weeks of gestation of pregnancy not specified

== ENCOUNTER → 2024-10-08 | Outpatient (CLI) | payer OTHER | LOC: M CARPUL 12:43 | PROVIDERS: ATTEND Nurse Practitioner Family | DX: R00.2 Palpitations (principal) ==

== ENCOUNTER → 2024-11-04 | Outpatient (CLI) | payer OTHER | LOC: M RAD 12:45 | PROVIDERS: ATTEND Advanced Practice Midwife | DX: O34.211 Maternal care for low transverse scar from previous cesarean delivery (principal) ==

== ENCOUNTER → 2024-11-29 | Outpatient (CLI) | payer OTHER ==
[2024-11-29 12:04] LABS: PLATELET COUNT, AUTOMATED 294 10^3/uL (150-450)
[2024-11-29 12:47] LABS: GLUCOSE CHALLENGE TEST 1 HOUR 166 MG/DL (LESS THAN 140)
[2024-11-29 13:17] LABS: HIV 1&2 SCREEN NEGATIVE (NEGATIVE)
[2024-11-29 13:25] LABS: HEPATITIS C VIRUS ABY INDEX < 0.02 INDEX (<0.8)
[2024-11-29 13:40] LABS: Trichomonas vaginalis (AMP) NOT DETECTED (NEGATIVE)
[2024-11-29 14:04] LABS: GC DNA AMPLIFICATION NEGATIVE (NEGATIVE)
== END ==
LOC: M LAB 10:23
PROVIDERS: ATTEND Advanced Practice Midwife
DX: O34.211 Maternal care for low transverse scar from previous cesarean delivery (principal)
CPT/HCPCS: 36415; 82950; 85027; 86780; 86803; 86850; 86900; 86901; 87389; 87661; 87810; 87850; J2790

== ENCOUNTER → 2024-12-03 | Outpatient (CLI) | payer OTHER | LOC: M LAB 07:49 | PROVIDERS: ATTEND Advanced Practice Midwife | DX: O99.810 Abnormal glucose complicating pregnancy (principal) ==

== ENCOUNTER 2025-01-09 14:22 | Outpatient (CLI) | payer OTHER ==
[~2025-01-09] VITALS: Ht 154.9 cm; Wt 81.0 kg
[2025-01-09 14:36] VITALS: BP 112/69
[2025-01-09] MEDS ORDERED: ACET500P3 PO (14:45)
== END 2025-01-09 15:45 | disposition home or self-care (01) ==
LOC: M LDO 14:22
PROVIDERS: ATTEND Advanced Practice Midwife
DX: O36.8130 Decreased fetal movements, third trimester, not applicable or unspecified (principal); O09.523 Supervision of elderly multigravida, third trimester; O34.219 Maternal care for unspecified type scar from previous cesarean delivery; O24.410 Gestational diabetes mellitus in pregnancy, diet controlled; Z67.41 Type O blood, Rh negative; Z3A.31 31 weeks gestation of pregnancy
CPT/HCPCS: 59025; G0463

== ENCOUNTER 2025-02-05 09:55 | Outpatient (CLI) | payer OTHER ==
[~2025-02-05] VITALS: Ht 154.9 cm; Wt 81.8 kg
[~2025-02-05 09:55] MED LIST changes: +ACET500P3 PO
[2025-02-05 10:23] VITALS: BP 127/83; O2SAT 98
== END 2025-02-05 11:20 | disposition home or self-care (01) ==
LOC: M LDO 09:55
PROVIDERS: ATTEND Obstetrics & Gynecology
DX: O47.03 False labor before 37 completed weeks of gestation, third trimester (principal); Z3A.35 35 weeks gestation of pregnancy; O34.211 Maternal care for low transverse scar from previous cesarean delivery; O09.523 Supervision of elderly multigravida, third trimester; Z67.41 Type O blood, Rh negative; O24.410 Gestational diabetes mellitus in pregnancy, diet controlled
CPT/HCPCS: 59025; G0463

== ENCOUNTER → 2025-02-11 | Outpatient (CLI) | payer OTHER | LOC: M WHC 09:53 | PROVIDERS: ATTEND Advanced Practice Midwife | DX: O24.410 Gestational diabetes mellitus in pregnancy, diet controlled (principal); Z3A.35 35 weeks gestation of pregnancy ==

== ENCOUNTER → 2025-02-11 | Outpatient (REF) | payer OTHER | LOC: M SFHCWAGY 12:50 | PROVIDERS: ATTEND Advanced Practice Midwife | DX: O09.523 Supervision of elderly multigravida, third trimester (principal); Z3A.00 Weeks of gestation of pregnancy not specified ==